=== PATIENT | female | born 1940 | race Two or more races ===

== ENCOUNTER → 2021-01-15 08:59 | Outpatient (CLI) | payer OTHER | END | disposition home or self-care (01) | LOC: NUCLEAR 08:59 | DX: I87.2 Venous insufficiency (chronic) (peripheral) (principal); R22.43 Localized swelling, mass and lump, lower limb, bilateral ==

== ENCOUNTER 2021-06-25 11:18 | Outpatient (CLI) | payer OTHER | END 2021-06-25 11:27 | disposition home or self-care (01) | LOC: RAD 11:18 | PROVIDERS: ATTEND General Practice | DX: M62.830 Muscle spasm of back (principal) ==

== ENCOUNTER 2022-08-28 06:14 | Emergency (ER) | payer OTHER ==
[~2022-08-28] VITALS: Ht 152.4 cm; Wt 54.4 kg
[2022-08-28] MEDS ORDERED: METFORMIN HCL500 M4 PO (06:29)
[2022-08-28] MEDS ORDERED: SIMVASTATIN40 MG PO (06:30)
[2022-08-28] MEDS ORDERED: ZESTRIL20 MG PO (06:30)
[2022-08-28] MEDS ORDERED: GLIMEPIRIDE4 MG PO (06:30)
== END 2022-08-28 12:47 | disposition home or self-care (01) ==
LOC: ER 06:14
DX: R42 Dizziness and giddiness (principal); E11.9 Type 2 diabetes mellitus without complications; Z79.84 Long term (current) use of oral hypoglycemic drugs; I10 Essential (primary) hypertension; Z20.822 Contact with and (suspected) exposure to COVID-19

== ENCOUNTER 2022-09-08 09:33 | Outpatient (CLI) | payer OTHER ==
[~2022-09-08 09:33] MED LIST: GLIMEPIRIDE4 MG PO; METFORMIN HCL500 M4 PO; SIMVASTATIN40 MG PO; ZESTRIL20 MG PO
== END 2022-09-08 09:35 | disposition home or self-care (01) ==
LOC: LAB 09:33
PROVIDERS: ATTEND Radiology Diagnostic Radiology
DX: R10.9 Unspecified abdominal pain (principal)

== ENCOUNTER 2022-09-23 08:16 | Outpatient (CLI) | payer OTHER | END 2022-09-23 13:32 | disposition home or self-care (01) | LOC: TOM 08:16 | PROVIDERS: ATTEND General Practice | DX: R10.9 Unspecified abdominal pain (principal); R10.2 Pelvic and perineal pain | CPT/HCPCS: 74177; Q9965 ==

== ENCOUNTER 2022-10-26 11:27 | Outpatient (CLI) | payer OTHER | END 2022-10-26 11:31 | disposition home or self-care (01) | LOC: NUCLEAR 11:27 | PROVIDERS: ATTEND General Practice | DX: M81.8 Other osteoporosis without current pathological fracture (principal) ==

== ENCOUNTER 2024-01-30 10:27 | Emergency (ER) | payer OTHER ==
[~2024-01-30] VITALS: Ht 152.4 cm; Wt 53.1 kg
[~2024-01-30 10:27] MED LIST changes: +FENOFIBRATE150 MG PO
[2024-01-30] MEDS ORDERED: DEXTROSE 50 % IN WATER 0.5 G/ML VIAL IV STA (11:35)
[2024-01-30 12:18] LABS: HEMATOCRIT 33.3 % (36.0-45.00); HEMOGLOBIN 11.7 g/dL (12.0-15.00); MEAN CELL VOLUME 92.1 fL (80.00-100.00); MEAN CORPUSCULAR HEMOGLOBIN 32.5 pg (27.00-32.0); MEAN CORPUSCULAR HGB CONC 35.3 g/dl (32.0-36.0); PLATELET COUNT 277 K/uL (150-450); RED BLOOD COUNT 3.61 M/uL (4.00-6.00); RED CELL DISTRIBUTION WIDTH 13.6 % (11.5-14.5)
[2024-01-30 12:33] LABS: CALCIUM 8.6 mg/dL (8.5-10.1); CREATININE SERUM 0.96 mg/dL (0.55-1.02); GFR 55.5; POTASSIUM 4.37 mEq/L (3.5-5.1)
== END 2024-01-30 14:27 | disposition home or self-care (01) ==
LOC: ER 10:27
PROVIDERS: General Practice
DX: E11.649 Type 2 diabetes mellitus with hypoglycemia without coma (principal); Z79.84 Long term (current) use of oral hypoglycemic drugs; T38.3X5A Adverse effect of insulin and oral hypoglycemic [antidiabetic] drugs, initial encounter; Y92.89 Other specified places as the place of occurrence of the external cause; K21.9 Gastro-esophageal reflux disease without esophagitis; I10 Essential (primary) hypertension
CPT/HCPCS: 36415; 96365; 99283; J3490